=== PATIENT | female | born 1990 | race Caucasian/White ===

== ENCOUNTER 2023-11-08 14:58 | Outpatient (CLI) | payer OTHER, SELFPAY | END 2023-11-08 14:59 | disposition home or self-care (01) | LOC: NFLDREF 11-12 03:08 | PROVIDERS: Visit Provider Family Medicine | DX: Z01.419 Encounter for gynecological examination (general) (routine) without abnormal findings (principal); R35.0 Frequency of micturition | CPT/HCPCS: 87077; 87086; 87184 ==

== ENCOUNTER 2024-10-30 13:49 | Outpatient (CLI) | payer OTHER, SELFPAY | END 2024-10-30 13:50 | disposition home or self-care (01) | PROVIDERS: PCP Family Medicine; Referring Provider Family Medicine; Visit Provider Physician Assistant Surgical | DX: R30.0 Dysuria (principal); N39.0 Urinary tract infection, site not specified; R35.0 Frequency of micturition | CPT/HCPCS: 87086 ==

== ENCOUNTER 2024-11-08 07:02 | Outpatient (CLI) | payer OTHER, SELFPAY | END 2024-11-08 07:03 | disposition home or self-care (01) | LOC: NFLDREF 07:03 | PROVIDERS: PCP Family Medicine; Visit Provider Family Medicine | DX: N39.0 Urinary tract infection, site not specified (principal); Z13.6 Encounter for screening for cardiovascular disorders; Z13.1 Encounter for screening for diabetes mellitus | CPT/HCPCS: 80061; 82947; 87086 ==